=== PATIENT | female | born 1975 | race African-American/Black ===

== ENCOUNTER 2016-05-13 12:51 | Emergency (ER) | payer MEDICARE, OTHER ==
[~2016-05-13] VITALS: Ht 165.1 cm; Wt 86.2 kg
[~2016-05-13 12:51] MED LIST: CYCL10TA2 PO; DOXY100C2 PO; HYDR-971 PO; IBUP800T PO; LAMO100T5 PO; MUPI15CR TP; NORE5TAB3 PO; OLME40TA PO; ONDA4TAB7 PO; SULF1TAB24 PO; ZOLP10TA PO
--- NOTE | 2016-05-13 13:35 | RAD ---
EXAM: Chest, 2 views. HISTORY: Cough. COMPARISON: 05/25/2007. FINDINGS: Frontal and lateral views of the chest are obtained. There is no infiltrate, effusion or pneumothorax. The heart is normal in size. IMPRESSION: No acute pulmonary finding.
--- NOTE | 2016-05-13 13:39 | PHYS DOC ---
General Chief Complaint: COUGH Stated Complaint: COUGHING X 4 DAYS Time Seen by MD: 13:16 Source: patient Exam Limitations: no limitations Problems: History of Present Illness Initial Comments Pt is 41/F to ED c/o cough. Pt states for the past 4 days she's had cough. Cough is dry, pt feels constant irritation and need to cough. Sx are worse at night, pt sometimes feels as if she cannot take deep breath. No cp/rash/itch/face or throat swelling, no fever/ HARDY/chills/myalgias. Pt started lisinopril 2 wks ago, only new known exposure. Pt denies h/o asthma but has been prescribed albuterol MDIs in past. Timing/Duration: constant (4 days) Severity: moderate Modifying Factors: improves with other Associated Symptoms: cough, other Allergies: Coded Allergies: No Known Drug Allergies (Unverified , 05/15/15) Past Medical History Medical History: hypertension, other Surgical History: noncontributory Social History Smoker: non-smoker Alcohol: none Drugs: none Review of Systems Constitutional: denies chills, denies diaphoresis, denies fever, denies malaise , denies weakness EENTM: denies ear pain, denies nose congestion, denies throat pain, denies throat swelling Respiratory: see HPI coughdenies orthopnea, denies stridor, denies wheezing Cardiovascular: denies chest pain, denies palpitations, denies syncope Gastrointestinal: denies diarrhea, denies nausea, denies vomiting Musculoskeletal: denies back pain, denies joint swelling, denies neck pain Psychiatric/Neurological: denies headache, denies numbness, denies paresthesia Hematologic/Lymphatic: denies blood clots, denies easy bleeding, denies easy bruising Physical Exam General Appearance: no apparent distress, obese Eyes: bilateral eye EOMI, bilateral eye PERRL, bilateral eye normal inspection Ear, Nose, Throat: hearing grossly normal, normal ENT inspection, normal pharynx Neck: non-tender, supple Respiratory: other (mildly decreased BS b/l, lungs clear, chest nontender, no resp distress) Cardiovascular: normal peripheral pulses, regular rate, rhythm Extremities: non-tender, normal inspection Neurologic/Psychiatric: complaint supervisor II-XII nml as tested, no motor/sensory deficits, alert, normal mood/affect, oriented x 3 Skin: normal color, warm/dry Orders, Labs, Meds PATIENT: CALEB LEWIS ACCOUNT: [id number] : 1975 LOCATION: ER AGE: 41 SEX: F EXAM STATUS: REG ER ORD. PHYSICIAN: KAYY CEDENO DO REASON: cough PROCEDURE: CHEST PA & LATERAL EXAM: Chest, 2 views. HISTORY: Cough. COMPARISON: 05/25/2007. FINDINGS: Frontal and lateral views of the chest are obtained. There is no infiltrate, effusion or pneumothorax. The heart is normal in size. IMPRESSION: No acute pulmonary finding. DICTATED AND SIGNED BY: CONY KC MD DATE: 05/13/16 1333 CC: ALBERTO VALDOVINOS MD; KAYY CEDENO DO ~ CBC with eosinophilia Peak Flows: predicted 450 pre- 350 post duoneb 380 I discussed likelihood of multifactorial cause for her cough. Lisinopril, a tendency toward reactive airway. I discussed treatment plan pt expressed agreement/understanding. Departure Time of Disposition: 14:11 Disposition: 01 HOME, SELF-CARE Diagnosis: cough, bronchospasm Condition: GOOD Patient Instructions: Cough, Adult, Nogh-ge-Soon Additional Instructions: As discussed, lisinopril is likely contributing to your cough symptoms. Discontinue lisinopril. Rx: albuterol MDI, prednisone Follow up with your doctor Tuesday for recheck. Return to ED with new or changing symptoms. KAYY CEDENO DO May 13, 2016 13:39
[2016-05-13 13:41] LABS: BASO # 0.1 x10^3/uL (0.0-0.2); BASO % 2 % (0-3); EOS # 0.3 x10^3/uL (0.0-0.7); EOS % 5 % (0-3); HEMATOCRIT 39.1 % (36.0-47.0); HEMOGLOBIN 13.1 g/dL (12.0-15.5); LYMPH # 2.6 x10^3/uL (1.0-4.8); LYMPH % 40 % (24-48); MEAN CORPUSCULAR HEMOGLOBIN 29 pg (25-35); MEAN CORPUSCULAR HGB CONC 34 g/dL (31-37); MEAN CORPUSCULAR VOLUME 85 fL (79-100); MONO # 0.4 x10^3/uL (0.0-1.1); MONO % 6 % (0-9); NEUT # 3.1 x10^3uL (1.8-7.7); NEUT % 47 % (31-73); PLATELET COUNT 282 x10^3/uL (140-400); RED BLOOD COUNT 4.58 x10^6/uL (3.50-5.40); RED CELL DISTRIBUTION WIDTH 14.6 % (11.5-14.5); WHITE BLOOD COUNT 6.6 x10^3/uL (4.0-11.0)
[2016-05-13] MEDS ORDERED: ALBU18HF IH (14:10)
[2016-05-13] MEDS ORDERED: PRED20TA PO (14:10)
[2016-05-13] MEDS ORDERED: IPRATRPIUM/ALBUTEROL 0.5/2.5MG 3 ML NEBU. NEB ONE (14:15)
[2016-05-13 14:20] VITALS: BP 159/100
== END 2016-05-13 14:20 | disposition home or self-care (01) ==
LOC: ER 12:52
DX: J98.01 Acute bronchospasm (principal); I10 Essential (primary) hypertension
CPT/HCPCS: 36415; 71020; 85027; 94250; 94640; 99285-25

== ENCOUNTER 2018-06-26 15:39 | Emergency (ER) | payer MEDICARE, OTHER ==
[~2018-06-26] VITALS: Ht 165.1 cm; Wt 69.1 kg
[~2018-06-26 15:39] MED LIST changes: +ALBU2.5V8 IH; +CYCL-331 PO; -CYCL10TA2 PO; +HYDR-3165 PO; -HYDR-971 PO; -IBUP800T PO; +IBUP800T19 PO; -OLME40TA PO; +OLME40TA12 PO; +PRED20TA PO
[2018-06-26] MEDS ORDERED: METOCLOPRAMIDE HCL 10 MG/2 ML VIAL. IV ONE (16:15)
[2018-06-26] MEDS ORDERED: HYOSCYAMINE 0.125 MG TAB.RAPDIS PO ONE (16:15)
[2018-06-26] MEDS ORDERED: IV NORMAL SALINE 1,000ML 1,000 ML IV ONE (16:15)
--- NOTE | 2018-06-26 16:15 | PHYS DOC ---
Past History Past Medical History: Anemia, Hypertension, Other (JULIANNE TRINH DO) Past Surgical History: Cholecystectomy, Tubal ligation (JULIANNE TRINH DO) Alcohol Use: None Drug Use: Marijuana (JULIANNE TRINH DO) Adult General Chief Complaint Chief Complaint: ABDOMINAL PAIN HPI HPI Patient is a 43-year-old female presents with left upper quadrant abdominal pain after eating "bad chicken" last night. She has had several episodes of nausea and vomiting. One episode of loose stool. Pain has not migrated. No fever. Some alert pain previously. No blood in the stool or emesis. No travel. No one else that his eaten the same meal is sick as far she knows. Past surgical history is significant for cholecystectomy. Nothing seems to make the discomfort better or worse. Discomfort is moderate in intensity. [] (JULIANNE TRINH DO) Review of Systems Review of Systems Constitutional: Denies fever or chills [] Eyes: Denies change in visual acuity, redness, or eye pain [] HENT: Denies nasal congestion or sore throat [] Respiratory: Denies cough or shortness of breath [] Cardiovascular: No chest pain or palpitations[] GI: See history of present illness[] : Denies dysuria or hematuria [] Musculoskeletal: Denies back pain or joint pain [] Integument: Denies rash or skin lesions [] Neurologic: Denies headache, focal weakness or sensory changes [] Endocrine: Denies polyuria or polydipsia [] All other systems were reviewed and found to be within normal limits, except as documented in this note. (JULIANNE TRINH DO) Allergies Allergies Allergies Coded Allergies Type Severity Reaction Last Updated Verified No Known Drug Allergies 06/26/18 No (JULIANNE TRINH DO) Physical Exam Physical Exam Constitutional: Well developed, well nourished, mild discomfort, non-toxic appearance. [] HENT: Normocephalic, atraumatic, bilateral external ears normal, oropharynx moist, no oral exudates, nose normal. [] Eyes: PERRLA, EOMI, conjunctiva normal, no discharge. [] Neck: Normal range of motion, no tenderness, supple, no stridor. [] Cardiovascular:Heart rate regular rhythm, no murmur [] Lungs & Thorax: Bilateral breath sounds clear to auscultation [] Abdomen: Bowel sounds normal, soft, left upper quadrant tenderness, no rebound, no guarding, no rigidity, patient is able to sit up and lay back without any significant difficulty, no masses, no pulsatile masses. [] Skin: Warm, dry, no erythema, no rash. [] Back: No tenderness, no CVA tenderness. [] Extremities: No tenderness, no cyanosis, no clubbing, ROM intact, no edema. [] Neurologic: Alert and oriented X 3, normal motor function, normal sensory function, no focal deficits noted. [] Psychologic: Affect normal, judgement normal, mood normal. [] ([facility]INE DO) Physical Exam Constitutional: Well developed, well nourished, non-toxic appearance. [] Eyes: Conjunctiva normal, no discharge. [] Neck: Supple Lungs & Thorax: No respiratory distress Neurologic: No focal deficits noted, speech normal (GONZALEZ,MAXWELL R DO) Current Patient Data Vital Signs Vital Signs Date Time Temp Pulse Resp B/P (MAP) Pulse Ox O2 Delivery O2 Flow Rate FiO2 06/26/18 15:46 98.9 88 18 100 Room Air ([facility] DO) EKG EKG [] ([facility],PINE DO) Radiology/Procedures Radiology/Procedures PROCEDURE: CT ABD PELV W/ IV CONTRST ONLY CT scan of the abdomen and pelvis with contrast 06/26/2018 CLINICAL HISTORY: Left upper quadrant abdominal pain since this morning. TECHNIQUE: After intravenous administration of 75 cc of Omnipaque 300, contiguous, 5 mm axial sections were obtained through the abdomen and pelvis. One or more of the following individualized dose reduction techniques were utilized for this study: 1. Automated exposure control. 2. Adjustment of the mA and/or kV according to patient size. 3. Use of iterative reconstruction technique. FINDINGS: Comparison study is dated 05/25/2007. Images through the lung bases are within normal limits. The liver parenchyma has a decreased attenuation consistent with fatty infiltration. The spleen, pancreas, adrenal glands and kidneys are within normal limits. The abdominal aorta tapers normally. Surgical clips are seen within the gallbladder fossa consistent with a cholecystectomy. No free fluid or free air is seen within the abdomen. There is no evidence of bowel obstruction. The appendix is partially visualized and is within normal limits. Images through the pelvis demonstrate the urinary bladder to be contracted. Calcifications are seen within the pelvis consistent with phleboliths. No adnexal mass is seen. No free fluid is noted. Minimal S-shaped curvature of the thoracolumbar spine is noted. IMPRESSION: No acute abnormality is seen.[] (JULIANNE TRINH DO) Course & Med Decision Making Course & Med Decision Making Pertinent Labs and Imaging studies reviewed. (See chart for details) ED course: Patient arrived, was placed in bed, and tolerated exam well. She was transported to and from [place] with any complications. Patient took a while to provide a urine sample but was able to do that. There is been no episodes of nausea or vomiting since receiving IV medication while in the emergency department for this. Care is being endorsed to the nighttime physician with urinalysis pending. Medical decision making: This may be a case of food poisoning due to the chicken that she ate. There is no evidence of oral intake intolerance. No evidence of significant electrolyte abnormality. No evidence of an obstruction or perforation or pancreatitis. Urinalysis is pending and will be followed by the oncoming physician.[] (JULIANNE TRINH DO) Course & Med Decision Making 1800- Sign out received from Dr. Trinh for patient pending UA results. Patient seen and evaluated by myself. UA without signs of infection. Other labs and CT imaging reviewed. Patient stable for discharge with outpatient follow-up with PCP. Discharge paperwork and Rxs previously printed and signed by Dr. Trinh. Discussed findings and plan with patient and family, who acknowledge understanding and agreement. (MAXWELL GONZALEZ DO) Dragon Disclaimer Dragon Disclaimer This electronic medical record was generated, in whole or in part, using a voice recognition dictation system. (JULIANNE TRINH DO) Departure Departure: Impression: Primary Impression: Abdominal pain Additional Impression: Nausea, vomiting, and diarrhea Disposition: 01 HOME, SELF-CARE Condition: IMPROVED Referrals: ALBERTO VALDOVINOS MD (PCP) Follow-up in 2 days Patient Instructions: Abdominal Pain, Diet for Diarrhea, Adult, Nausea and Vomiting Additional Instructions: Drink plenty of fluids, frequent small sips. No fatty foods, no milk, and no pepper for the next 48 hours. For the next 48 hours eat a diet rich in carbohydrates with foods such as bananas, rice, applesauce, and toast. Follow-up with your regular doctor in 2 days. Return to the ER if unable tolerate liquids or any other concerns. Scripts Metoclopramide Hcl (REGLAN) 10 Mg Tablet 10 MG PO QID for nausea and vomiting, #30 TAB Prov: JULIANNE TRINH DO 06/26/18 Hyoscyamine Sulfate (LEVSIN) 0.125 Mg Tablet 0.125 MG PO QID for abdominal pain/cramping, #30 TAB Prov: JULIANNE TRINH DO 06/26/18 Problem Qualifiers Primary Impression: Abdominal pain Abdominal location: left upper quadrant Qualified Codes: R10.12 - Left upper quadrant pain JULIANNE TRINH DO June 26, 2018 16:15 GONZALEZMAXWELL DO June 26, 2018 19:18
[2018-06-26] MEDS ORDERED: IOHEXOL 300 MG/ML 75 ML VIAL. IV ONE (16:30)
[2018-06-26 16:41] LABS: BASO % 0 % (0-3); EOS % 0 % (0-3); HEMATOCRIT 45.7 % (36.0-47.0); HEMOGLOBIN 15.2 g/dL (12.0-15.5); LYMPH # 0.9 x10^3/uL (1.0-4.8); LYMPH % 9 % (24-48); MEAN CORPUSCULAR HEMOGLOBIN 30 pg (25-35); MEAN CORPUSCULAR HGB CONC 33 g/dL (31-37); MEAN CORPUSCULAR VOLUME 89 fL (79-100); MONO # 0.2 x10^3/uL (0.0-1.1); MONO % 3 % (0-9); NEUT # 8.6 x10^3uL (1.8-7.7); NEUT % 88 % (31-73); PLATELET COUNT 311 x10^3/uL (140-400); RED BLOOD COUNT 5.15 x10^6/uL (3.50-5.40); RED CELL DISTRIBUTION WIDTH 14.5 % (11.5-14.5); WHITE BLOOD COUNT 9.8 x10^3/uL (4.0-11.0)
--- NOTE | 2018-06-26 17:01 | RAD ---
CT scan of the abdomen and pelvis with contrast 06/26/2018 CLINICAL HISTORY: Left upper quadrant abdominal pain since this morning. TECHNIQUE: After intravenous administration of 75 cc of Omnipaque 300, contiguous, 5 mm axial sections were obtained through the abdomen and pelvis. One or more of the following individualized dose reduction techniques were utilized for this study: 1. Automated exposure control. 2. Adjustment of the mA and/or kV according to patient size. 3. Use of iterative reconstruction technique. FINDINGS: Comparison study is dated 05/25/2007. Images through the lung bases are within normal limits. The liver parenchyma has a decreased attenuation consistent with fatty infiltration. The spleen, pancreas, adrenal glands and kidneys are within normal limits. The abdominal aorta tapers normally. Surgical clips are seen within the gallbladder fossa consistent with a cholecystectomy. No free fluid or free air is seen within the abdomen. There is no evidence of bowel obstruction. The appendix is partially visualized and is within normal limits. Images through the pelvis demonstrate the urinary bladder to be contracted. Calcifications are seen within the pelvis consistent with phleboliths. No adnexal mass is seen. No free fluid is noted. Minimal S-shaped curvature of the thoracolumbar spine is noted. IMPRESSION: No acute abnormality is seen. Electronically signed by: Jn Villa MD (06/26/2018 4:58 PM) [facility]
[2018-06-26 17:04] LABS: ALBUMIN/GLOBULIN RATIO 0.9 (1.0-1.7); CALCIUM 9.3 mg/dL (8.5-10.1); CREATININE 0.9 mg/dL (0.6-1.0); GFR 83.5; TOTAL BILIRUBIN 0.6 mg/dL (0.2-1.0); TOTAL PROTEIN 8.4 g/dL (6.4-8.2)
[2018-06-26 17:13] LABS: PREG TEST PT QUAL NEGATIVE (NEG)
[2018-06-26] MEDS ORDERED: METO10TA81 PO (17:56)
[2018-06-26] MEDS ORDERED: HYOS0.1264 PO (17:56)
[2018-06-26 18:13] LABS: BACTERIA,URINE 0 /HPF (0-FEW); BILIRUBIN,URINE NEG (NEG); CLARITY,URINE HAZY; COLOR,URINE YELLOW; GLUCOSE,URINE NEG (NEG); NITRITE,URINE NEG (NEG); RBC,URINE 0 /HPF (0-2); SQUAMOUS EPITHELIAL CELL,UR OCC /LPF; UROBILINOGEN,URINE 0.2 mg/dL (0.2 mg/dL); WBC,URINE 0 /HPF (0-4)
[2018-06-26 18:26] VITALS: BP 147/97
== END 2018-06-26 18:28 | disposition home or self-care (01) ==
LOC: ER 15:39
DX: R10.12 Left upper quadrant pain (principal); R11.2 Nausea with vomiting, unspecified; R19.7 Diarrhea, unspecified; I10 Essential (primary) hypertension; Z86.2 Personal history of diseases of the blood and blood-forming organs and certain disorders involving the immune mechanism; Z90.49 Acquired absence of other specified parts of digestive tract; Z98.51 Tubal ligation status
CPT/HCPCS: 36415; 74177; 80053; 81001; 83690; 84703; 85025; 96361; 96374; 99285; J2765; Q9967; J7030